=== PATIENT | female | born 1980 | race Caucasian/White ===

== ENCOUNTER 2020-09-07 02:12 | Observation (INO) ==
[2020-09-07] MEDS ORDERED: Naloxone 0.4 MG/ML INJ IVP PRN (09:22)
[2020-09-07] MEDS ORDERED: Ondansetron 4 MG/2 ML VIAL IVP PRN (09:22)
[2020-09-07] MEDS ORDERED: Acetaminophen 325 MG TABLET PO PRN (09:22)
[2020-09-07] MEDS ORDERED: Perflutren Lipid Microsphere 1.3 ML in 0.9 % Sodium Chloride 8.7 ML IVP PRN (10:01)
[2020-09-07] MEDS ORDERED: QUEtiapine Fumarate 25 MG TABLET PO PRN (11:26)
[2020-09-07 11:54] LABS: Chol/HDL Ratio 5.8 (0-4.9); Cholesterol 174 mg/dL (< 200); HDL Cholesterol 30 mg/dL (40-59); LDL Cholesterol,Calculated 119 mg/dL (< 100); Triglycerides 127 mg/dL (< 150)
[2020-09-07] MEDS: Budesonide/Formoterol 80/4.5 1 PUFF INH IH SCH ×2 (14:43→22:37)
[2020-09-07] MEDS: cloNIDine HCL 0.1 MG TABLET PO SCH (20:46)
[2020-09-07] MEDS ORDERED: QUEtiapine Fumarate 100 MG TABLET PO SCH (21:00)
[2020-09-07] MEDS ORDERED: Venlafaxine XR (24 HR) 75 MG CAP.ER.24H PO SCH (21:00)
[2020-09-08 01:20] LABS: Hematocrit 43.2 % (35.3-44.9); Hemoglobin 14.6 g/dL (11.5-15.4); Mean Corpuscular HGB Conc 33.8 g/dL (31.6-35.5); Mean Corpuscular Hemoglobin 31.3 pg (28.0-33.3); Mean Corpuscular Volume 92.5 fL (83.0-100.0); Mean Platelet Volume 11.7 fL (9.4-12.4); Platelet Count 204 K/mcL (140-400); Red Blood Count 4.67 M/mcL (3.82-4.97); Red Cell Distribution Width 12.7 % (11.5-14.5); White Blood Count 9.5 K/mcL (4.3-11.1)
[2020-09-08 02:12] LABS: BUN/Creatinine Ratio 15 (6-26); Blood Urea Nitrogen 11 mg/dL (6-20); Calcium 9.1 mg/dL (8.6-10.3); Carbon Dioxide 24 mEq/L (23-29); Chloride 107 mEq/L (98-107); Glucose 95 mg/dL (70-105); Osmolality,Calculated 283 (280-300); Sodium 137 mEq/L (136-145); eGFR For African Americans > 60 (> 60); eGFR For Non-African Americans > 60 (> 60)
[2020-09-08] MEDS ORDERED: Regadenoson 0.4 MG/5 ML SYRINGE IVP ONE (06:28)
[2020-09-08] MEDS: Budesonide/Formoterol 80/4.5 1 PUFF INH IH SCH (07:43)
[2020-09-08] MEDS: cloNIDine HCL 0.1 MG TABLET PO SCH (08:06)
[2020-09-08] MEDS ORDERED: Venlafaxine XR (24 HR) 150 MG CAP.ER.24H PO SCH (09:00)
[2020-09-08] MEDS ORDERED: Aspirin 81 MG TAB.CHEW PO SCH (09:00)
[2020-09-08 10:57] LABS: Troponin I < 0.03 ng/mL (< 0.04)
[2020-09-08 11:36] VITALS: BP 129/78
== END 2020-09-08 16:41 | disposition home or self-care (01) ==
LOC: 2NNU → SUATTDRO 08:40
PROVIDERS: ADMIT Internal Medicine; ATTEND Student in an Organized Health Care Education/Training Program

== ENCOUNTER 2022-01-08 09:18 | Observation (INO) ==
[2022-01-08 09:58] LABS: Bilirubin,Urine Negative (Negative); Blood,Urine Negative (Negative); Clarity,Urine Clear (Clear); Color,Urine Light-Yellow (Yellow); Glucose,Urine (UA) Normal (Normal); Ketones,Urine Negative (Negative); Leukocyte Esterase,Urine Negative (Negative); Nitrite,Urine Negative (Negative); PH,Urine 6.5 pH Units (5.0-8.0); Protein,Urine Negative (Neg-Trace); Specific Gravity,Urine 1.013 (1.010-1.025); Urobilinogen,Urine Normal (Normal)
[2022-01-08 10:04] LABS: Basophils # 0.1 K/mcL (0.0-0.2); Eosinophils # 0.3 K/mcL (0.0-0.6); Eosinophils % 4.1 %; Hematocrit 44.8 % (35.3-44.9); Hemoglobin 15.4 g/dL (11.5-15.4); Immature Granulocytes % 0.3 % (0-4); Lymphocytes # 1.9 K/mcL (0.6-4.6); Lymphocytes % 24.7 %; Mean Corpuscular HGB Conc 34.4 g/dL (31.6-35.5); Mean Corpuscular Hemoglobin 31.4 pg (28.0-33.3); Mean Corpuscular Volume 91.2 fL (83.0-100.0); Mean Platelet Volume 11.8 fL (9.4-12.4); Monocytes # 0.7 K/mcL (0.0-1.3); Monocytes % 8.5 %; Neutrophils # 4.8 K/mcL (1.6-8.9); Platelet Count 247 K/mcL (140-400); Red Blood Count 4.91 M/mcL (3.82-4.97); Red Cell Distribution Width 12.6 % (11.5-14.5); Segmented Neutrophils % 61.4 %; White Blood Count 7.7 K/mcL (4.3-11.1)
[2022-01-08 10:20] LABS: Acetaminophen < 10 mcg/mL (10-20); BUN/Creatinine Ratio 16 (6-26); Blood Urea Nitrogen 11 mg/dL (6-20); Calcium 8.7 mg/dL (8.6-10.3); Carbon Dioxide 31 mEq/L (23-29); Chloride 104 mEq/L (98-107); Ethanol < 10 mg/dL (Less than 10); Glucose 82 mg/dL (70-105); Osmolality,Calculated 284 (280-300); Salicylate < 2.5 mg/dL (15.0-30.0); Sodium 138 mEq/L (136-145); eGFR For African Americans > 60 (> 60); eGFR For Non-African Americans > 60 (> 60)
[2022-01-08 10:20] LABS: Amphetamine Screen,Urine Negative ng/mL (Cutoff=1000); Barbiturate Screen,Urine Negative ng/mL (Cutoff=200); Benzodiazepines Screen,Urine Negative ng/mL (Cutoff=200); Cannabinoid Screen,Urine Positive ng/mL (Cutoff = 50); Cocaine Screen,Urine Negative ng/mL (Cutoff= 300); Opiate Screen,Urine Negative ng/mL (Cutoff=300); Phencyclidine Screen,Urine Negative ng/mL (Cutoff=25)
[2022-01-08 10:27] LABS: Troponin I < 0.03 ng/mL (< 0.04)
[2022-01-08] MEDS ORDERED: Haloperidol Lactate 5 MG/ML VIAL IM PRN (12:08)
[2022-01-08] MEDS ORDERED: Mag Hydrox/Al Hydrox/Simeth 30 ML UDC PO PRN (12:08)
[2022-01-08] MEDS ORDERED: traZODone 50 MG TABLET PO PRN (12:08)
[2022-01-08] MEDS ORDERED: Acetaminophen 325 MG TABLET PO PRN (12:08)
[2022-01-08] MEDS ORDERED: haloperidoL 5 MG TABLET PO PRN (12:08)
[2022-01-08] MEDS ORDERED: MOM Conc 10 ML UD.LIQ PO PRN (12:08)
[2022-01-08] MEDS ORDERED: *HR* LORazepam 2 MG/ML VIAL IM PRN (12:08)
[2022-01-08] MEDS ORDERED: hydrOXYzine pamoate 25 MG CAPSULE PO PRN (12:08)
[2022-01-08 13:24] LABS: Influenza A PCR Negative (Negative); Influenza B PCR Negative (Negative); Resp. Syncytial Virus PCR Negative (Negative)
[2022-01-08 13:25] LABS: SARS-CoV-2 by PCR (In House) Negative (Negative)
[2022-01-08] MEDS: QUEtiapine Fumarate 100 MG TABLET PO SCH (21:41)
[2022-01-09] MEDS ORDERED: hydrOXYzine pamoate 25 MG CAPSULE PO PRN (12:12)
[2022-01-09] MEDS ORDERED: Haloperidol Lactate 5 MG/ML VIAL IM PRN (12:47)
[2022-01-09] MEDS: Gabapentin 100 MG CAPSULE PO SCH ×2 (15:35→21:38)
[2022-01-09] MEDS: QUEtiapine Fumarate 25 MG TABLET PO SCH (17:09)
[2022-01-09 20:07] VITALS: O2SAT 99
[2022-01-09] MEDS: QUEtiapine Fumarate 100 MG TABLET PO SCH (21:38)
[2022-01-10] MEDS: Gabapentin 100 MG CAPSULE PO SCH (09:14)
[2022-01-10] MEDS: QUEtiapine Fumarate 25 MG TABLET PO SCH (09:14)
[2022-01-10 09:17] VITALS: BP 165/100; PULSE 57; TEMP 97.5
== END 2022-01-10 10:40 | disposition home or self-care (01) ==
LOC: EMEROOARM 09:18 → 1ANU 09:18
PROVIDERS: ADMIT Psychiatry & Neurology Psychiatry; ATTEND Psychiatry & Neurology Psychiatry